=== PATIENT | female | born 1990 | race Two or more races ===

== ENCOUNTER 2020-01-26 15:25 | Outpatient (CLI) | payer OTHER | END 2020-01-26 18:58 | disposition home or self-care (01) | LOC: OFIC 805 15:25 | PROVIDERS: ATTEND Otolaryngology | DX: T16.1XXA Foreign body in right ear, initial encounter (principal); R22.1 Localized swelling, mass and lump, neck ==

== ENCOUNTER → 2020-03-07 | Outpatient (CLI) | payer OTHER | END | disposition home or self-care (01) | LOC: OFIC 805 14:10 | PROVIDERS: ATTEND Otolaryngology | DX: H91.8X2 Other specified hearing loss, left ear (principal); F73 Profound intellectual disabilities ==